=== PATIENT | female | born 1945 | race Caucasian/White ===

== ENCOUNTER 2017-04-13 13:43 | Inpatient (IN) | payer BC ==
--- NOTE | ~2017-04-13 | DS ---
Discharge Summary [id number] [place]. [address] NAME: MARIELA MERA : 45 STATUS : DIS IN PAT#: [id number] AGE: 71 ADM/REG DATE : 04/13/17 MR#: [id number] REPORT SERV DATE: 04/25/17 DICTATED BY: BORIS MICHAELS DATE: 04/25/17 REPORT STATUS : Draft TRANSCRIBED BY: MODL DATE: 04/25/17 ADMISSION DATE: 04/13/2017 DISCHARGE DATE: 04/25/2017 Please refer also to history of present illness dictated by Dr. Ad Lawson on 04/13/2017 and refer to interim discharge summary dictated by Dr. Kinney on 04/18/2017 when the patient was discharged to ICU to the regular floor. DIAGNOSES ON ADMISSION: 1. Hypercapnic hypoxic respiratory failure requiring BiPAP. 2. Decreased mental status and decreased level of consciousness most likely secondary to hypercapnia. 3. Severe chronic obstructive pulmonary disease. 4. Bipolar disease. 5. Gastroesophageal reflux disease. 6. Hypertension. 7. Mild dementia. DIAGNOSES ON DISCHARGE: 1. Hypercapnic hypoxic respiratory failure, resolved, currently on baseline home oxygen. Chronic respiratory failure with baseline oxygen requirement of 2 L by nasal cannula. 2. Normal mental status. No evidence of any abnormal mental status. Normal mentation. 3. Severe chronic obstructive pulmonary disease at the baseline. Stable. No evidence of any wheezing, doing well. 4. Hypertension, controlled. 5. History of bipolar disorder, currently completely controlled. No evidence of any abnormality. 6. Mild dementia with good reasoning. 7. Chronic depression, seen by Dr. Moore, psychiatrist. 8. Hallucinations, resolved after patient's home medications adjusted. 9. Obstructive sleep apnea, needs to continue to use her CPAP at night. 10.Left knee wound, resolved in the healing stage. Currently, no evidence of active infection. 11.Polypharmacy, on multiple sedative medications, which will increase the risk of fall. 12.History of previous two falls. 13.Polypharmacy, reduce sedative medications. CONSULTANTS ON THE CASE: Psychiatrist, Dr. Harley Moore. HISTORY OF PRESENT ILLNESS: Briefly, this is a very pleasant, 71-year-old female, who was admitted initially by Critical Care physician, Dr. Ad Lawson, for unresponsiveness and decreased level of consciousness as well as with acute hypercapnic hypoxic respiratory failure and was placed on BiPAP. For the details, see history of present illness dictated by Dr. Lawson on 04/13/2017. HOSPITAL COURSE: Briefly, the patient was staying in the ICU until 04/21/2017, when I saw Discharge Summary [address] [place]. [address] NAME: MARIELA MERA : 45 STATUS : DIS IN PAT#: [id number] AGE: 71 ADM/REG DATE : 04/13/17 MR#: [id number] REPORT SERV DATE: 04/25/17 DICTATED BY: BORIS MICHAELS DATE: 04/25/17 REPORT STATUS : Draft TRANSCRIBED BY: JAY DATE: 04/25/17 the patient first time. Please also refer to interim discharge summary dictated by Dr. Kinney on 04/18/2017. When I saw the patient on 04/21/2017, she was doing well. She had mild wheezing. She was continuing her COPD regimen and her wheezing resolved next day as well as she had a wound on the left knee, which was also in the healing stage. There was no active infection. Her white count improved. She was afebrile. She completed her antibiotics while inpatient and needed to continue only wound care and the wound was very small and the skin was already healed around. She also had hyponatremia, which I think it is related to her multiple medications and polypharmacy. It has resolved, and her sodium improved to 132. She did not have any confusion and she had mild hallucination on the first day when she was on the floor. Dr. Moore, psychiatrist, was consulted in regards of this hallucinations. He evaluated the patient and he found that the patient has extensive polypharmacy. He recommended to decrease her Effexor to 150 mg daily. He recommended to decrease the Seroquel to 50 mg daily. Also, he recommended to decrease Klonopin to 0.5 mg at bedtime only. In the same time, he recommended to discontinue trazodone and also to discontinue Flomax since the patient did not have any urinary retention and Flomax is usually prescribed in men patients. In the same time, Dr. Moore questions if the patient really has bipolar disorder. He thinks that she has depression, which is chronic and controlled currently. Regarding the patient's dementia, Dr. Moore also stated that and if the patient has dementia, it is mild dementia and she is able to do reasoning and he recommended to stop Exelon patch and to see how the patient is doing. Here, we saw the patient for last four days and she was doing well. She was ambulating without assistance and she met her goals at physical therapy, so she is not qualified for [facility] and she can go home as well as because of this polypharmacy and multiple sedative medications, the patient is at risk for acute respiratory failure, because elevated dosages of Klonopin with combination of Seroquel, trazodone, and Klonopin can cause over-sedation, so it was recommended to decrease her sedative medications, and Exelon patch also was held and the patient did not have any hallucinations and her mood was very controlled. Dr. Moore also stated that the patient more have depressive disorder than bipolar, although there is a possibility of bipolar disorder as well, but it is currently controlled, and the Seroquel will take care of that. Also wound care was continued. Her hypertension was controlled. She has tremor, which is most likely benign essential tremor. The patient was recommended to go home, and I told the patient that she cannot stay at home by herself, so she needs to go and stay with her niece because she needs constant help for seven days a week, 24 hour today. As well as, we will arrange physical therapy to help patients with medications to help the patient with physical therapy and wound care. The patient was argumentative with her education consultant, but I emphasized to the patient that she needs to stay with her education consultant to help her. Also, we recommend the patient to use her CPAP at home and recommend to follow up with nurse practitioner of Niya Rocha for further management and re-adjusting her medications as well as her neurologist, but the patient has very mild dementia and she has a good reasoning and she understands things, although she has some memory problems. I discussed this also with the caregiver. The patient was very stable on discharge. Discharge Summary [address] [place]. [address] NAME: MARIELA MERA : 45 STATUS : DIS IN PAT#: [id number] AGE: 71 ADM/REG DATE : 04/13/17 MR#: [id number] REPORT SERV DATE: 04/25/17 DICTATED BY: BORIS MICHAELS DATE: 04/25/17 REPORT STATUS : Draft TRANSCRIBED BY: JAY DATE: 04/25/17 DISCHARGE MEDICATIONS SUMMARY: Lipitor 10 mg daily; Norvasc 5 mg daily, new prescription given; Colace 100 mg p.o. b.i.d.; lisinopril 20 mg daily; potassium chloride 10 mEq daily; Seroquel dose was decreased to 50 mg at bedtime; Spiriva one capsule by inhalation q.24 hours; Effexor dose was decreased by Dr. Moore to 150 mg a day; trazodone was discontinued; clonazepam instead of 0.5 twice a day was decreased to 0.5 at bedtime; clonidine transdermal patch to be continued at 0.3 mg every seven days; albuterol nebulized inhaled twice daily; Exelon patch was discontinued; and Flomax as well was discontinued since it can cause orthostatic hypotension and dizziness as well as Klonopin and Seroquel dosages were decreased by Dr. Moore because of the same reason decreased respiratory drive and risk of respiratory failure and hypoxemia and hypercarbia. This was all explained to the patient and to her caregiver. I spent 45 minutes on discharge. I want to mention that the patient was observed here in the regular floor for the last four days, and her wound mood was very controlled and memory was also stable. She has very mild dementia and she was doing well. DICTATED BY: Juana Hernandez/JAY Boris Michaels M.D. / [id number] CC: Juana Hernandez M.D.
--- NOTE | ~2017-04-13 | IDS ---
Interim Discharge Summary [facility] [address] [place]. [address] NAME: MARIELA MERA : 45 STATUS : ADM IN PAT#: [id number] AGE: 71 ADM/REG DATE : 04/13/17 MR#: [id number] REPORT SERV DATE: 04/18/17 DICTATED BY: TAYO KINNEY DATE: 04/18/17 REPORT STATUS : Draft TRANSCRIBED BY: MODL DATE: 04/18/17 ADMISSION DATE: 04/13/2017 DISCHARGE DATE: ADMISSION DIAGNOSES: 1. Hypercapnic-hypoxic respiratory failure requiring BiPAP. 2. Decreased mental status, more than likely secondary to hypercapnia. 3. Severe chronic obstructive pulmonary disease. 4. Bipolar disease. 5. Gastroesophageal reflux disease. 6. Hypertension. 7. Dementia. HOSPITAL COURSE: The patient was brought in by EMS after she was found unresponsive by her . The patient was given Narcan with minimal improvement, taken to the emergency room, was found to be hypercapnic with a pCO2 of 96. The patient was placed on BiPAP and transferred to the MICU for further care. She was treated with bronchodilator protocol, steroids and has improved. Chest x-ray did not show any obvious infiltrates. The patient was started on broad-spectrum antibiotic therapy with Zosyn and vancomycin. There was no obvious source of infection. However, she was reported to have a lower extremity cellulitis, which has improved. Zosyn was changed to Levaquin, and vancomycin was continued. Of note, the patient had an elevated procalcitonin on admission, which was 1.09 and decreased to 1.03 on 04/14, no repeat has been done since. I have ordered a procalcitonin for the morning of 04/19. If this continues to decrease and has come down to less than 0.05, I would go ahead and discontinue the antibiotics. Another consideration is that if the cellulitis continues to need treatment that the patient can be started on Ancef with discontinuation of the Zosyn and the Levaquin. The patient is on chronic O2 therapy at home at [address] Lynn as an outpatient and should see him after she is discharged. For treatment of her depression and dementia, her Exelon, Desyrel, Effexor, Klonopin have been continued. She was noted to be somewhat mildly hyponatremic this morning with a sodium of 127. It was noted that she is on hydrochlorothiazide and this has been discontinued. I will follow her sodium to see if it improves after the discontinuation of the hydrochlorothiazide. She has been on subcu heparin prophylaxis for DVT prophylaxis and on Pepcid for GI prophylaxis. She is stable for discharge to the floor, Hospitalist Service will continue to follow her on the floor, and the Hospitalist Intake Service will be notified. /JAY Tayo Kinney M.D. / [id number] Interim Discharge Summary [address] [address] NAME: MARIELA MERA : 45 STATUS : ADM IN [facility]#: [id number] AGE: 71 ADM/REG DATE : 04/13/17 MR#: [id number] REPORT SERV DATE: 04/18/17 DICTATED BY: TAYO KINNEY DATE: 04/18/17 REPORT STATUS : Draft TRANSCRIBED BY: JAY DATE: 04/18/17 CC: MD Niya Reis M.D.
--- NOTE | ~2017-04-13 | CN ---
Consultation Report [facility] [address] [place]. [address] NAME: MARIELA MERA : 45 STATUS : ADM IN PAT#: [id number] AGE: 71 ADM/REG DATE : 04/13/17 MR#: [id number] REPORT SERV DATE: 04/22/17 DICTATED BY: HARLEY LAZAR DATE: 04/22/17 REPORT STATUS : Draft TRANSCRIBED BY: MODL DATE: 04/22/17 PSYCHIATRIC CONSULTATION DATE OF CONSULTATION: 04/22/2017 I reviewed this patient's current and old medical records. I discussed the patient's status with Dr. Alcazar. HISTORY OF PRESENT ILLNESS: The patient was found unresponsive at home. She was admitted with evidence of hypercapnic respiratory failure. I was consulted to address her bipolar status. PAST PSYCHIATRIC HISTORY: She had two previous admissions to [facility] this year with episodes of respiratory failure and exacerbations of COPD. Her home medication list included Klonopin 0.5 mg b.i.d., Seroquel 25 mg a.m. and 100 mg at bedtime, Exelon patch 9.5 mg daily, trazodone 50 mg at bedtime, Effexor XR 150 mg q.a.m. and 75 mg at bedtime. She reports that she has suffered from chronic depression since her teens or perhaps even earlier. Before, she was age 20, she spent two years at [facility] where she was given courses of ECTs. She has never suffered from any manic or hypomanic symptoms. SOCIAL HISTORY: Her of 30 years suddenly about seven years ago. A few years ago, she went to live with a niece. She feels her niece is supportive, but is overly protective, and she tends to request a lot of medication for the patient. MENTAL STATUS: She was very pleasant and cooperative in attitude. She spoke freely and fluently. She reported that she has had periods of amnesia over the years, but she has not experienced any new problem with her memory. Her mood was somewhat dysphoric. Her affect was appropriate. Her thinking was logical. She had no delusions. She had no hallucinations. She was oriented to time, place, and person. DIAGNOSIS: Major depressive disorder, chronic. RECOMMENDATIONS: She was mainly concerned about her recent falls and her recurring respiratory failures. She was concerned about polypharmacy and she asked if we could address this. I discussed her medications with Dr. Alcazar and decided to make the following changes. 1. Discontinue trazodone. 2. Discontinue Exelon patch. 3. Discontinue Flomax. 4. Reduce Effexor XR to 150 mg daily. 5. Reduce Klonopin to 0.5 mg at bedtime only. I will see her for a followup visit on Tuesday04/25/2017 if she is still in the hospital. Consultation Report [id number] [facility] [place]. [address] NAME: MARIELA MERA : 45 STATUS : ADM IN PAT#: [id number] AGE: 71 ADM/REG DATE : 04/13/17 MR#: [id number] REPORT SERV DATE: 04/22/17 DICTATED BY: HARLEY LAZAR DATE: 04/22/17 REPORT STATUS : Draft TRANSCRIBED BY: JAY DATE: 04/22/17 KENIA/JAY Harley Lazar M.D. / [id number] CC: Juana Hernandez M.D.
--- NOTE | ~2017-04-13 | HP ---
History And Physical [address] [place]. [address] NAME: MARIELA MERA : 45 STATUS : ADM IN [facility]#: [id number] AGE: 71 ADM/REG DATE : 04/13/17 MR#: [id number] REPORT SERV DATE: 04/14/17 DICTATED BY: AD BURROUGHS DATE: 04/13/17 REPORT STATUS : Draft TRANSCRIBED BY: MODL DATE: 04/13/17 DATE OF ADMISSION: 04/13/2017 TIME: 2041 hours. Seen in MICU bed 5. HISTORY OF PRESENT ILLNESS: The patient is a 71-year-old, COPD patient, who apparently was found unresponsive at home, given Narcan and woke up slightly, taken by EMS to the emergency room where she was found to be hypercapnic and placed on BiPAP. Now in the Medical ICU, the patient is on BiPAP. She is awake and responsive. She has a lot of muscular twitches at this time. Her vital signs are currently stable. Family found her unresponsive at home and they called the EMS. PAST MEDICAL HISTORY: Significant for hypertension, dementia, COPD, chronic hypoxic respiratory failure, O2 dependent, history of bipolar disease, GERD. She is status post left breast lumpectomy, back surgery, tonsillectomy, hemorrhoidectomy. ALLERGIES: SHE IS ALLERGIC TO AMITRIPTYLINE, MORPHINE, AND ASPIRIN. HOME MEDICATIONS: Quite extensive, include: Albuterol nebulizer solution, Lipitor 10 mg at bedtime, Klonopin 0.5 mg p.o. twice a day, Catapres transdermal patch 0.3 mg per 24 hours one patch every seven days, lisinopril 20 mg p.o. daily, KCl 10 mEq p.o. daily, Seroquel 100 mg p.o. at bedtime and Seroquel 25 mg p.o. daily, Exelon 9.5 mg patch daily, Flomax 0.4 mg capsule daily, Spiriva HandiHaler 1 cap inhalation daily, Desyrel 50 mg p.o. daily, Effexor XR 150 mg p.o. daily, Effexor XR 75 mg p.o. at bedtime. REVIEW OF SYSTEMS: A 10-point review is done except for mentioned above, all other systems are negative. PHYSICAL EXAMINATION: VITAL SIGNS: Blood pressure of 127/83, temperature 100.6, pulse 94, sat 99%. GENERAL: Patient has multiple ecchymoses over the upper extremities and lower extremities. HEENT: Head is normocephalic. Sclerae and conjunctivae are clear. NECK: Supple. Good upstroke. CHEST: Decreased breath sounds. Occasional wheezing. No rhonchi. CARDIAC: S1 and S2. No murmurs or gallops. ABDOMEN: Soft, nontender. No masses or organomegaly. EXTREMITIES: No clubbing or edema or cyanosis. NEUROLOGIC: Has evidence for tremors and some . Cranial nerves appear to be intact. The patient is responsive. LABORATORY DATA: Show sodium 138, potassium 5.0, chloride 101, CO2 of 32, BUN 20, creatinine 1.27, glucose 120, calcium 8.5, magnesium 2.1. Troponin 0.6. Acetaminophen 2.0, salicylate 1.7, alcohol less than 10. Lactate 2.2. Initial blood gas: PH 7.24, pCO2 of 84, PO2 of 270 on BiPAP 18/8. BNP 289. Chest x-ray is clear. CBC shows an H and H of 11.0 and 36.7, History And Physical [address] [address] NAME: MARIELA MERA : 45 STATUS : ADM IN [facility]#: [id number] AGE: 71 ADM/REG DATE : 04/13/17 MR#: [id number] REPORT SERV DATE: 04/14/17 DICTATED BY: AD BURROUGHS DATE: 04/13/17 REPORT STATUS : Draft TRANSCRIBED BY: MOD DATE: 04/13/17 white count 28,300, platelets 365,000, 74 polys, 21 bands, 2 monos. INR 0.9. UA 530 mg protein. Urine drug screen positive for opiates. CT brain, mild atrophy, . Blood gas: PH 7.14. PCO2 of 96, PO2 of 63, on 100%. Repeat blood gas: PH 7.24, pCO2 of 85, PO2 of 96, 50%, 20/18. Pelvic x-ray: No pelvic fractures or dislocations. IMPRESSION: 1. Positive urine screen for opiates. 2. Hypercapnic respiratory failure. 3. Chronic obstructive pulmonary disease. 4. Mild dementia. PLAN: Continue IV Solu-Medrol. Continue BiPAP. Monitor intake and output. Initiate antibiotic therapy. We will get urinary Legionella and urinary streptococcal antigen, blood cultures, and procalcitonin. Chest x-ray shows no infiltrates. RP/MODL Ad Burroughs M.D. / [id number] CC: Shawn Steen MD
[2017-04-13 12:46] LABS: BASOPHILS 0 %; BASOPHILS ABSOLUTE 0.01 10/3/uL (0.0-0.16); EOSINOPHILS 0 %; IMMATURE GRANULOCYTES 0.4 %; LYMPHOCYTES ABSOLUTE 1.12 10/3/uL (0.67-4.30); MEAN CORPUSCULAR HEMOGLOB 28.1 pg (26.0-34.0); MEAN PLATELET VOLUME 9.4 fL (9.2-13.0); MONOCYTES 3.8 %; MONOCYTES ABSOLUTE 1.07 10/3/uL (0.21-1.20); NEUTROPHILS 91.8 %; NEUTROPHILS ABSOLUTE 26.01 10/3/uL (2.02-8.40); RED CELL COUNT 3.92 10/6/uL (4.0-5.6)
[2017-04-13 12:48] LABS: ER CBC TAT 0 Hrs 13 Mins; HEMATOCRIT 36.7 % (36.0-48.0); IMMATURE GRANULOCYTES ABSOLUTE 0.12 10/3/uL (0.0-0.11); MANUAL DIFF NO %; MEAN CORPUSCULAR VOLUME 93.6 fL (80-100); PLATELET COUNT 365 10/3/uL (150-400); WHITE BLOOD CELLS 28.3 10/3/uL (4.5-10.5)
[2017-04-13 13:03] LABS: CALCIUM, SERUM 8.5 MG/DL (8.5-10.4); CO2 (CARBON DIOXIDE) 32 MMOL/L (24-34); CREATININE 1.27 MG/DL (0.55-1.02); GFR AFRICAN AMERICAN 49 ML/MIN (>=60); GFR NON AFRICAN AMERICAN 42 ML/MIN (>=60)
[2017-04-13 13:06] LABS: ACETAMINOPHEN LEVEL (TYLENOL) < 2.0 MCG/ML (10.0-20.0); ALCOHOL < 10 MG/DL (0); BUN (BLOOD UREA NITROGEN) 20 MG/DL (6-23); CHEST PAIN PROFILE TAT 0 Hrs 31 Mins; CHLORIDE, SERUM 101 MMOL/L (96-112); GLUCOSE, SERUM 120 MG/DL (60-99); SALICYLATE < 1.7 MG/DL (-); SODIUM, SERUM 138 MMOL/L (135-148); TROPONIN I 0.06 NG/ML (<0.05)
[2017-04-13 13:10] LABS: LACTATE 2.2 MMOL/L (0.3-2.4)
[2017-04-13 13:20] LABS: BAND NEUTROPHILS 21 %; ER DIFF TAT 0 Hrs 45 Mins; LYMPHOCYTES 3 %; LYMPHOCYTES ABSOLUTE (CALC) 0.85 10/3/uL (0.67-4.30); MONOCYTES 2 %; MONOCYTES ABSOLUTE (CALC) 0.57 10/3/uL (0.21-1.20); NEUTROPHILS ABSOLUTE (CALC) 26.89 10/3/uL (2.02-8.40); PLATELET ESTIMATE ADQ (ADEQUATE); RBC MORPHOLOGY NORM (NORMAL); SEGMENTED NEUTROPHIL (0) 74 %; TOTAL NUCLEATED CELLS 100
[2017-04-13 13:22] LABS: BE (BASE EXCESS) 5.3 MEQ/L (0 +/- 2.5); BIPAP 18/8 cm.H2O; HCO3 (ACTUAL BICARBONATE) 34.9 MEQ/L (23-27); HEMOBLOGIN CONTENT 10.9 G/DL (12-16); INSTRUMENT SERIAL # 8087; METHEMOGLOBIN 0.3 % (0-3); O2 CONTENT 15.6 VOL% (18-24); PCO2 (CO2 TENSION) 84 MMHG (35-45); PO2 (O2 TENSION) 270 MMHG (79-93); SAMPLE Arterial; pH 7.24 (7.37-7.43)
[~2017-04-13 13:43] MED LIST: ADVAIR250 INH; ALBUTEROL5 INH; ATEN25 PO; BACTRIM DS1 TAB; BEN25 PO; CALTRA600D PO; CARDU4 PO; CARDURA XL4 MG PO; CATAPRES3 TOP; CELEBREX2 PO; CELEXA40 MG PO; COMBIVENT RESPIM4 GM INH; DSS PO; DYAZIDE PO; EFFEXOR XR150 MG PO; EFFEXXR75 PO; EXELON9.5T TOP; FIORICET/COD OR; FISH-EPA1000 MG PO; FLOMAX4 PO; FLONASE NAS; FLORASTOR250 MG PO; KDUR10 PO; KLONO5 PO; KLOR-CON M1010 MEQ PO; KLOR-CON M2020 MEQ PO; L40 PO; LIPITOR10 PO; MAX25 PO; MIRALAX POWDER1 PKT PO; MIRALAXPKT PO; NEXIUM40 PO; NORCO1 TA1 PO; NORV5 PO; P10 PO; P20; PRIN20 PO; PROVENTSOL INH; PROVHFA INH; REMERON45 MG PO; SEROQUEL1C PO; SEROQUEL25 PO; SEROQUEL50 MG PO; SPIRIVA INH; STERAPRED DS10 MG; TYLENOL COLD/FLU PO; VERAMYST27.5 MCG NAS; VESICARE5 PO; VITAMIN D1000 UNI1 PO; XOPENEX0.63 MG INH; ZANTAC 150 PO; ZESTRIL20 MG PO; ZYPREXA10 MG PO
[2017-04-13 13:44] LABS: INTERNATIONAL NORMAL RATI 0.9 UNITS (-); PROTIME (NOT ORD) 12.3 SEC (12.0-14.5)
[2017-04-13 13:50] LABS: PARTIAL THROMBO TIME 24.3 SEC (22.5-37.2)
[2017-04-13 13:56] LABS: ASCORBIC ACID (UR NOT ORDER) NEG (NEG); BILIRUBIN, URINE NEGATIVE (NEG); ER URINALYSIS TAT 0 Hrs 25 Mins; KETONE, URINE NEGATIVE (NEG); LEUKOCYTE ESTERASE(NOT OR NEG (NEG); NITRITE (URINE) NEG (NEG); WBC (NOT ORDERED) (RFLEX) < 1 (0-5)
[2017-04-13 14:16] LABS: AMPHETAMINES (NOT ORD) NEG (NEG); BARBITURATES (NOT ORDERED NEG (NEG); BENZODIAZEPINES (NOT ORD) NEG (NEG); CANNABINOIDS (THC) NEG (NEG); COCAINE (NOT ORDERED) NEG (NEG); OPIATES POS (NEG); PHENCYCLIDINE(PCP) NEG (NEG); TRICYCLICS NEG (NEG)
[2017-04-13] MEDS ORDERED: TRAZ50 PO (16:18)
[2017-04-13] MEDS ORDERED: FLOMAX4 PO (16:19)
[2017-04-13 16:52] LABS: ALLENS TEST Pos; CARBOXYHEMOGLOBIN 1.4 % (0-3); HCO3 (ACTUAL BICARBONATE) 32.1 MEQ/L (23-27); HEMOBLOGIN CONTENT 11.4 G/DL (12-16); INSTRUMENT SERIAL # 8087; METHEMOGLOBIN 0.2 % (0-3); O2 CONTENT 14.5 VOL% (18-24); PCO2 (CO2 TENSION) 96 MMHG (35-45); PEEP/CPAP 7.5 cm.H2O; PO2 (O2 TENSION) 63 MMHG (79-93); SAMPLE Arterial; pH 7.14 (7.37-7.43)
[2017-04-13 17:05] LABS: INSTRUMENT SERIAL # 8087; pH 7.24 (7.37-7.43)
[2017-04-13 17:06] LABS: ALLENS TEST Pos; BE (BASE EXCESS) 6.2 MEQ/L (0 +/- 2.5); BIPAP 20/8 cm.H2O; CARBOXYHEMOGLOBIN 1.1 % (0-3); HCO3 (ACTUAL BICARBONATE) 35.7 MEQ/L (23-27); HEMOBLOGIN CONTENT 10.7 G/DL (12-16); METHEMOGLOBIN 0.2 % (0-3); O2 CONTENT 14.6 VOL% (18-24); PCO2 (CO2 TENSION) 85 MMHG (35-45); PO2 (O2 TENSION) 96 MMHG (79-93); SAMPLE Arterial
[2017-04-13 22:57] LABS: A/G RATIO 0.9 (0.7-1.9); BUN (BLOOD UREA NITROGEN) 22 MG/DL (6-23); CALCIUM, SERUM 8.4 MG/DL (8.5-10.4); CHLORIDE, SERUM 103 MMOL/L (96-112); CO2 (CARBON DIOXIDE) 35 MMOL/L (24-34); CREATININE 1.16 MG/DL (0.55-1.02); FREE T4 1.13 NG/DL (0.76-1.46); GFR AFRICAN AMERICAN 55 ML/MIN (>=60); GFR NON AFRICAN AMERICAN 47 ML/MIN (>=60); GLOBULIN 3.2 G/DL (2.5-4.1); GLUCOSE, SERUM 108 MG/DL (60-99); POTASSIUM, SERUM 5.2 MMOL/L (3.5-5.3); SGOT(AST) 15 U/L (5-40); SGPT(ALT) 16 U/L (5-65); SODIUM, SERUM 141 MMOL/L (135-148); TOTAL BILIRUBIN 0.3 MG/DL (0-1.2); TOTAL PROTEIN 6.2 G/DL (6.0-8.5)
[2017-04-13 22:59] LABS: ALKALINE PHOSPHATASE 109 U/L (45-117); ULTRASENSITIVE TSH 0.297 MCIU/ML (0.358-3.740)
[2017-04-14 00:08] LABS: PROCALCITONIN 1.09 ng/mL (<0.5)
[2017-04-14 04:04] LABS: BE (BASE EXCESS) 2.6 MEQ/L (0 +/- 2.5); BIPAP 20/8 cm.H2O; CARBOXYHEMOGLOBIN 0.7 % (0-3); HCO3 (ACTUAL BICARBONATE) 29.7 MEQ/L (23-27); HEMOBLOGIN CONTENT 9.4 G/DL (12-16); INSTRUMENT SERIAL # 8083; METHEMOGLOBIN 0.2 % (0-3); O2 CONTENT 13.1 VOL% (18-24); PCO2 (CO2 TENSION) 60 MMHG (35-45); PO2 (O2 TENSION) 111 MMHG (79-93); SAMPLE Arterial; pH 7.31 (7.37-7.43)
[2017-04-14 05:01] LABS: BASOPHILS 0 %; EOSINOPHILS 0 %; HEMOGLOBIN 9.2 g/dL (12.0-16.0); IMMATURE GRANULOCYTES 0.4 %; IMMATURE GRANULOCYTES ABSOLUTE 0.06 10/3/uL (0.0-0.11); LYMPHOCYTES 5.1 %; LYMPHOCYTES ABSOLUTE 0.75 10/3/uL (0.67-4.30); MEAN CORPUS HGB CONC 30.6 g/dL (32.0-36.0); MEAN CORPUSCULAR HEMOGLOB 27.7 pg (26.0-34.0); MEAN PLATELET VOLUME 9.8 fL (9.2-13.0); MONOCYTES 6.5 %; MONOCYTES ABSOLUTE 0.95 10/3/uL (0.21-1.20); NEUTROPHILS ABSOLUTE 12.88 10/3/uL (2.02-8.40); RED CELL COUNT 3.32 10/6/uL (4.0-5.6)
[2017-04-14 05:02] LABS: HEMATOCRIT 30.1 % (36.0-48.0); MANUAL DIFF NO %; MEAN CORPUSCULAR VOLUME 90.7 fL (80-100); PLATELET COUNT 236 10/3/uL (150-400); WHITE BLOOD CELLS 14.6 10/3/uL (4.5-10.5)
[2017-04-14 05:28] LABS: ALBUMIN 2.9 G/DL (3.5-5.0); BUN (BLOOD UREA NITROGEN) 23 MG/DL (6-23); CALCIUM, SERUM 8.5 MG/DL (8.5-10.4); CHLORIDE, SERUM 104 MMOL/L (96-112); CREATININE 1.09 MG/DL (0.55-1.02); GFR AFRICAN AMERICAN 59 ML/MIN (>=60); GFR NON AFRICAN AMERICAN 51 ML/MIN (>=60); GLUCOSE, SERUM 97 MG/DL (60-99); SGPT(ALT) 14 U/L (5-65); SODIUM, SERUM 138 MMOL/L (135-148); TOTAL BILIRUBIN 0.2 MG/DL (0-1.2); TOTAL PROTEIN 5.9 G/DL (6.0-8.5)
[2017-04-14 05:30] LABS: ALKALINE PHOSPHATASE 96 U/L (45-117); CK-MB 1.8 NG/ML; CO2 (CARBON DIOXIDE) 28 MMOL/L (24-34); CPK 212 U/L (0-200); SGOT(AST) 20 U/L (5-40); TROPONIN I 0.05 NG/ML (<0.05)
[2017-04-14 05:35] LABS: BURR CELLS 1+ (3-10/OIF) (0-2/OIF); PLATELET ESTIMATE ADQ (ADEQUATE)
[2017-04-14 13:11] LABS: BE (BASE EXCESS) 0.7 MEQ/L (0 +/- 2.5); CARBOXYHEMOGLOBIN 0.8 % (0-3); HCO3 (ACTUAL BICARBONATE) 27.2 MEQ/L (23-27); HEMOBLOGIN CONTENT 9.5 G/DL (12-16); INSTRUMENT SERIAL # 8083; METHEMOGLOBIN 0.2 % (0-3); O2 CONTENT 13.2 VOL% (18-24); OPERATOR ID 35784; PCO2 (CO2 TENSION) 53 MMHG (35-45); PO2 (O2 TENSION) 109 MMHG (79-93); SAMPLE Arterial; pH 7.33 (7.37-7.43)
[2017-04-15 04:08] LABS: BASOPHILS 0 %; EOSINOPHILS 0 %; HEMATOCRIT 29.8 % (36.0-48.0); HEMOGLOBIN 9.2 g/dL (12.0-16.0); IMMATURE GRANULOCYTES 0.3 %; IMMATURE GRANULOCYTES ABSOLUTE 0.04 10/3/uL (0.0-0.11); LYMPHOCYTES 7.4 %; MEAN CORPUS HGB CONC 30.9 g/dL (32.0-36.0); MEAN CORPUSCULAR HEMOGLOB 27.4 pg (26.0-34.0); MEAN CORPUSCULAR VOLUME 88.7 fL (80-100); MEAN PLATELET VOLUME 9.8 fL (9.2-13.0); MONOCYTES 8.2 %; NEUTROPHILS 84.1 %; NEUTROPHILS ABSOLUTE 10.27 10/3/uL (2.02-8.40); PLATELET COUNT 285 10/3/uL (150-400); RBC DISTRIBUTION WIDTH 13.9 % (12.0-16.0); RED CELL COUNT 3.36 10/6/uL (4.0-5.6); WHITE BLOOD CELLS 12.2 10/3/uL (4.5-10.5)
[2017-04-15 04:15] LABS: MANUAL DIFF NO %
[2017-04-15 04:26] LABS: BUN (BLOOD UREA NITROGEN) 20 MG/DL (6-23); CALCIUM, SERUM 8.9 MG/DL (8.5-10.4); CHLORIDE, SERUM 98 MMOL/L (96-112); GFR AFRICAN AMERICAN 58 ML/MIN (>=60); GFR NON AFRICAN AMERICAN 50 ML/MIN (>=60); PHOSPHORUS, SERUM 2.4 MG/DL (2.5-4.5); POTASSIUM, SERUM 4.5 MMOL/L (3.5-5.3); SODIUM, SERUM 137 MMOL/L (135-148)
[2017-04-15 04:27] LABS: CO2 (CARBON DIOXIDE) 34 MMOL/L (24-34); GLUCOSE, SERUM 121 MG/DL (60-99)
[2017-04-15 17:03] LABS: TROPONIN I 0.05 NG/ML (<0.05)
[2017-04-16 04:34] LABS: BASOPHILS 0.1 %; BASOPHILS ABSOLUTE 0.01 10/3/uL (0.0-0.16); EOSINOPHILS 0.1 %; EOSINOPHILS ABSOLUTE 0.01 10/3/uL (0.0-0.53); HEMATOCRIT 28.3 % (36.0-48.0); HEMOGLOBIN 9.2 g/dL (12.0-16.0); IMMATURE GRANULOCYTES 0.3 %; IMMATURE GRANULOCYTES ABSOLUTE 0.03 10/3/uL (0.0-0.11); LYMPHOCYTES 13.6 %; LYMPHOCYTES ABSOLUTE 1.52 10/3/uL (0.67-4.30); MEAN CORPUSCULAR HEMOGLOB 27.8 pg (26.0-34.0); MEAN PLATELET VOLUME 9.5 fL (9.2-13.0); MONOCYTES 10.6 %; MONOCYTES ABSOLUTE 1.18 10/3/uL (0.21-1.20); NEUTROPHILS 75.3 %; NEUTROPHILS ABSOLUTE 8.39 10/3/uL (2.02-8.40); PLATELET COUNT 255 10/3/uL (150-400); RED CELL COUNT 3.31 10/6/uL (4.0-5.6); WHITE BLOOD CELLS 11.1 10/3/uL (4.5-10.5)
[2017-04-16 04:43] LABS: MANUAL DIFF NO %; MEAN CORPUS HGB CONC 32.5 g/dL (32.0-36.0); MEAN CORPUSCULAR VOLUME 85.5 fL (80-100)
[2017-04-16 04:45] LABS: BUN (BLOOD UREA NITROGEN) 17 MG/DL (6-23); CALCIUM, SERUM 8.5 MG/DL (8.5-10.4); CHLORIDE, SERUM 94 MMOL/L (96-112); CO2 (CARBON DIOXIDE) 36 MMOL/L (24-34); CREATININE 0.94 MG/DL (0.55-1.02); GFR AFRICAN AMERICAN 71 ML/MIN (>=60); GFR NON AFRICAN AMERICAN 61 ML/MIN (>=60); GLUCOSE, SERUM 106 MG/DL (60-99); PHOSPHORUS, SERUM 2.8 MG/DL (2.5-4.5); POTASSIUM, SERUM 4.2 MMOL/L (3.5-5.3); SODIUM, SERUM 133 MMOL/L (135-148)
[2017-04-17 05:05] LABS: BASOPHILS 0.1 %; BASOPHILS ABSOLUTE 0.01 10/3/uL (0.0-0.16); EOSINOPHILS 0.4 %; EOSINOPHILS ABSOLUTE 0.04 10/3/uL (0.0-0.53); HEMOGLOBIN 9.3 g/dL (12.0-16.0); IMMATURE GRANULOCYTES 0.4 %; IMMATURE GRANULOCYTES ABSOLUTE 0.04 10/3/uL (0.0-0.11); LYMPHOCYTES ABSOLUTE 1.62 10/3/uL (0.67-4.30); MEAN CORPUS HGB CONC 32.1 g/dL (32.0-36.0); MEAN CORPUSCULAR VOLUME 84.1 fL (80-100); MEAN PLATELET VOLUME 9.4 fL (9.2-13.0); MONOCYTES 10.6 %; MONOCYTES ABSOLUTE 1.01 10/3/uL (0.21-1.20); NEUTROPHILS 71.5 %; NEUTROPHILS ABSOLUTE 6.81 10/3/uL (2.02-8.40); PLATELET COUNT 274 10/3/uL (150-400); RBC DISTRIBUTION WIDTH 14.1 % (12.0-16.0); RED CELL COUNT 3.45 10/6/uL (4.0-5.6); WHITE BLOOD CELLS 9.5 10/3/uL (4.5-10.5)
[2017-04-17 05:06] LABS: MANUAL DIFF NO %
[2017-04-17 05:18] LABS: BUN (BLOOD UREA NITROGEN) 15 MG/DL (6-23); CALCIUM, SERUM 8.5 MG/DL (8.5-10.4); CHLORIDE, SERUM 91 MMOL/L (96-112); CO2 (CARBON DIOXIDE) 36 MMOL/L (24-34); CREATININE 0.93 MG/DL (0.55-1.02); GFR AFRICAN AMERICAN 72 ML/MIN (>=60); GFR NON AFRICAN AMERICAN 62 ML/MIN (>=60); GLUCOSE, SERUM 86 MG/DL (60-99); POTASSIUM, SERUM 3.9 MMOL/L (3.5-5.3); SODIUM, SERUM 132 MMOL/L (135-148)
[2017-04-18 04:41] LABS: BASOPHILS 0 %; EOSINOPHILS 0.7 %; EOSINOPHILS ABSOLUTE 0.06 10/3/uL (0.0-0.53); HEMATOCRIT 27.7 % (36.0-48.0); HEMOGLOBIN 9.1 g/dL (12.0-16.0); IMMATURE GRANULOCYTES 0.3 %; IMMATURE GRANULOCYTES ABSOLUTE 0.03 10/3/uL (0.0-0.11); LYMPHOCYTES 20.7 %; LYMPHOCYTES ABSOLUTE 1.84 10/3/uL (0.67-4.30); MEAN CORPUS HGB CONC 32.9 g/dL (32.0-36.0); MEAN CORPUSCULAR HEMOGLOB 27.2 pg (26.0-34.0); MEAN CORPUSCULAR VOLUME 82.9 fL (80-100); MEAN PLATELET VOLUME 9.5 fL (9.2-13.0); MONOCYTES 11.5 %; MONOCYTES ABSOLUTE 1.02 10/3/uL (0.21-1.20); NEUTROPHILS 66.8 %; NEUTROPHILS ABSOLUTE 5.94 10/3/uL (2.02-8.40); PLATELET COUNT 264 10/3/uL (150-400); RBC DISTRIBUTION WIDTH 13.9 % (12.0-16.0); RED CELL COUNT 3.34 10/6/uL (4.0-5.6); WHITE BLOOD CELLS 8.9 10/3/uL (4.5-10.5)
[2017-04-18 04:57] LABS: MANUAL DIFF NO %
[2017-04-18 05:00] LABS: CALCIUM, SERUM 8.4 MG/DL (8.5-10.4); CHLORIDE, SERUM 86 MMOL/L (96-112); CO2 (CARBON DIOXIDE) 36 MMOL/L (24-34); CREATININE 0.97 MG/DL (0.55-1.02); GFR AFRICAN AMERICAN 68 ML/MIN (>=60); GFR NON AFRICAN AMERICAN 59 ML/MIN (>=60); GLUCOSE, SERUM 95 MG/DL (60-99); POTASSIUM, SERUM 3.9 MMOL/L (3.5-5.3); SODIUM, SERUM 127 MMOL/L (135-148)
[2017-04-18 05:01] LABS: BUN (BLOOD UREA NITROGEN) 11 MG/DL (6-23)
[2017-04-19 04:32] LABS: BUN (BLOOD UREA NITROGEN) 12 MG/DL (6-23); CALCIUM, SERUM 8.4 MG/DL (8.5-10.4); CHLORIDE, SERUM 86 MMOL/L (96-112); CO2 (CARBON DIOXIDE) 35 MMOL/L (24-34); GFR AFRICAN AMERICAN 75 ML/MIN (>=60); GFR NON AFRICAN AMERICAN 64 ML/MIN (>=60); GLUCOSE, SERUM 100 MG/DL (60-99); PHOSPHORUS, SERUM 3.6 MG/DL (2.5-4.5); POTASSIUM, SERUM 3.8 MMOL/L (3.5-5.3); SODIUM, SERUM 128 MMOL/L (135-148)
[2017-04-19 05:46] LABS: PROCALCITONIN <0.05 ng/mL (<0.5)
[2017-04-20 04:25] LABS: BASOPHILS 0.2 %; BASOPHILS ABSOLUTE 0.02 10/3/uL (0.0-0.16); EOSINOPHILS 2.5 %; EOSINOPHILS ABSOLUTE 0.29 10/3/uL (0.0-0.53); HEMOGLOBIN 10.4 g/dL (12.0-16.0); IMMATURE GRANULOCYTES 1.5 %; IMMATURE GRANULOCYTES ABSOLUTE 0.17 10/3/uL (0.0-0.11); LYMPHOCYTES 20.7 %; LYMPHOCYTES ABSOLUTE 2.39 10/3/uL (0.67-4.30); MEAN CORPUS HGB CONC 33.5 g/dL (32.0-36.0); MEAN CORPUSCULAR HEMOGLOB 27.4 pg (26.0-34.0); MEAN CORPUSCULAR VOLUME 81.8 fL (80-100); MEAN PLATELET VOLUME 9.6 fL (9.2-13.0); MONOCYTES 13.4 %; MONOCYTES ABSOLUTE 1.55 10/3/uL (0.21-1.20); NEUTROPHILS 61.7 %; NEUTROPHILS ABSOLUTE 7.11 10/3/uL (2.02-8.40); PLATELET COUNT 280 10/3/uL (150-400); RBC DISTRIBUTION WIDTH 14.1 % (12.0-16.0); RED CELL COUNT 3.79 10/6/uL (4.0-5.6); WHITE BLOOD CELLS 11.5 10/3/uL (4.5-10.5)
[2017-04-20 04:28] LABS: MANUAL DIFF NO %
[2017-04-20 04:46] LABS: BUN (BLOOD UREA NITROGEN) 9 MG/DL (6-23); CALCIUM, SERUM 8.6 MG/DL (8.5-10.4); CHLORIDE, SERUM 87 MMOL/L (96-112); CO2 (CARBON DIOXIDE) 31 MMOL/L (24-34); CREATININE 0.93 MG/DL (0.55-1.02); GFR AFRICAN AMERICAN 72 ML/MIN (>=60); GFR NON AFRICAN AMERICAN 62 ML/MIN (>=60); GLUCOSE, SERUM 77 MG/DL (60-99); PHOSPHORUS, SERUM 3.9 MG/DL (2.5-4.5); POTASSIUM, SERUM 3.9 MMOL/L (3.5-5.3); SODIUM, SERUM 125 MMOL/L (135-148)
[2017-04-20 10:16] LABS: OSMOLALITY, URINE 147 MOSM/KG (50-1200)
[2017-04-20 10:18] LABS: SODIUM, URINE 34 MEQ/L
[2017-04-21 05:53] LABS: BASOPHILS 0.2 %; BASOPHILS ABSOLUTE 0.03 10/3/uL (0.0-0.16); EOSINOPHILS 3.7 %; EOSINOPHILS ABSOLUTE 0.46 10/3/uL (0.0-0.53); HEMATOCRIT 30.5 % (36.0-48.0); IMMATURE GRANULOCYTES 1.7 %; IMMATURE GRANULOCYTES ABSOLUTE 0.21 10/3/uL (0.0-0.11); LYMPHOCYTES 16.1 %; LYMPHOCYTES ABSOLUTE 2.01 10/3/uL (0.67-4.30); MANUAL DIFF NO %; MEAN CORPUS HGB CONC 32.8 g/dL (32.0-36.0); MEAN CORPUSCULAR HEMOGLOB 27.3 pg (26.0-34.0); MEAN CORPUSCULAR VOLUME 83.3 fL (80-100); MEAN PLATELET VOLUME 9.6 fL (9.2-13.0); MONOCYTES 12.9 %; MONOCYTES ABSOLUTE 1.61 10/3/uL (0.21-1.20); NEUTROPHILS 65.4 %; NEUTROPHILS ABSOLUTE 8.18 10/3/uL (2.02-8.40); PLATELET COUNT 300 10/3/uL (150-400); RBC DISTRIBUTION WIDTH 14.6 % (12.0-16.0); RED CELL COUNT 3.66 10/6/uL (4.0-5.6); WHITE BLOOD CELLS 12.5 10/3/uL (4.5-10.5)
[2017-04-21 06:13] LABS: BUN (BLOOD UREA NITROGEN) 11 MG/DL (6-23); CALCIUM, SERUM 8.4 MG/DL (8.5-10.4); CHLORIDE, SERUM 94 MMOL/L (96-112); CO2 (CARBON DIOXIDE) 32 MMOL/L (24-34); CREATININE 1.04 MG/DL (0.55-1.02); GFR AFRICAN AMERICAN 63 ML/MIN (>=60); GFR NON AFRICAN AMERICAN 54 ML/MIN (>=60); GLUCOSE, SERUM 79 MG/DL (60-99); PHOSPHORUS, SERUM 4.2 MG/DL (2.5-4.5); POTASSIUM, SERUM 4.1 MMOL/L (3.5-5.3); SODIUM, SERUM 132 MMOL/L (135-148)
[2017-04-22 05:10] LABS: BUN (BLOOD UREA NITROGEN) 12 MG/DL (6-23); CALCIUM, SERUM 8.3 MG/DL (8.5-10.4); CHLORIDE, SERUM 94 MMOL/L (96-112); CREATININE 1.14 MG/DL (0.55-1.02); GFR AFRICAN AMERICAN 56 ML/MIN (>=60); GFR NON AFRICAN AMERICAN 48 ML/MIN (>=60); POTASSIUM, SERUM 4.1 MMOL/L (3.5-5.3); SODIUM, SERUM 129 MMOL/L (135-148)
[2017-04-22 05:13] LABS: CO2 (CARBON DIOXIDE) 27 MMOL/L (24-34); GLUCOSE, SERUM 96 MG/DL (60-99)
[2017-04-22 05:37] LABS: BASOPHILS 0.6 %; BASOPHILS ABSOLUTE 0.07 10/3/uL (0.0-0.16); EOSINOPHILS 3.3 %; EOSINOPHILS ABSOLUTE 0.39 10/3/uL (0.0-0.53); HEMOGLOBIN 8.9 g/dL (12.0-16.0); IMMATURE GRANULOCYTES 1.6 %; IMMATURE GRANULOCYTES ABSOLUTE 0.19 10/3/uL (0.0-0.11); LYMPHOCYTES 18.5 %; MEAN CORPUS HGB CONC 33.2 g/dL (32.0-36.0); MEAN CORPUSCULAR HEMOGLOB 28.2 pg (26.0-34.0); MEAN CORPUSCULAR VOLUME 84.8 fL (80-100); MEAN PLATELET VOLUME 9.7 fL (9.2-13.0); MONOCYTES 10.7 %; MONOCYTES ABSOLUTE 1.28 10/3/uL (0.21-1.20); NEUTROPHILS 65.3 %; NEUTROPHILS ABSOLUTE 7.79 10/3/uL (2.02-8.40); NUCLEATED RED BLOOD CELLS 0.2 /100WBC (0-0); PLATELET COUNT 273 10/3/uL (150-400); RBC DISTRIBUTION WIDTH 14.7 % (12.0-16.0); RED CELL COUNT 3.16 10/6/uL (4.0-5.6); WHITE BLOOD CELLS 11.9 10/3/uL (4.5-10.5)
[2017-04-22 05:39] LABS: HEMATOCRIT 26.8 % (36.0-48.0); MANUAL DIFF NO %
[2017-04-23 06:38] LABS: BUN (BLOOD UREA NITROGEN) 12 MG/DL (6-23); CALCIUM, SERUM 8.7 MG/DL (8.5-10.4); CHLORIDE, SERUM 95 MMOL/L (96-112); CO2 (CARBON DIOXIDE) 31 MMOL/L (24-34); GFR AFRICAN AMERICAN 66 ML/MIN (>=60); GFR NON AFRICAN AMERICAN 57 ML/MIN (>=60); GLUCOSE, SERUM 84 MG/DL (60-99); POTASSIUM, SERUM 4.1 MMOL/L (3.5-5.3); SODIUM, SERUM 132 MMOL/L (135-148)
[2017-04-25] MEDS ORDERED: NORV5 PO (09:45)
[2017-04-25] MEDS ORDERED: DSS PO (09:46)
== END 2017-04-25 14:06 | disposition home health service (06) | DRG 189 ==
LOC: ER 13:43 → MIC 17:54 → 2SO 04-20 15:17
PROVIDERS: Emergency Medicine; Hospitalist; Internal Medicine; Internal Medicine Critical Care Medicine; Internal Medicine Pulmonary Disease
PROC: 5A09457 Assistance with Respiratory Ventilation, 24-96 Consecutive Hours, Continuous Positive Airway Pressure (ICD-10-PCS; principal; 2017-04-13)
DX: J96.22 Acute and chronic respiratory failure with hypercapnia (principal); L03.116 Cellulitis of left lower limb; Z99.81 Dependence on supplemental oxygen; F03.90 Unspecified dementia, unspecified severity, without behavioral disturbance, psychotic disturbance, mood disturbance, and anxiety; J44.9 Chronic obstructive pulmonary disease, unspecified; E87.1 Hypo-osmolality and hyponatremia; J96.21 Acute and chronic respiratory failure with hypoxia; I10 Essential (primary) hypertension; F31.9 Bipolar disorder, unspecified; K21.9 Gastro-esophageal reflux disease without esophagitis; E78.5 Hyperlipidemia, unspecified; W06.XXXA Fall from bed, initial encounter; Y93.9 Activity, unspecified; Y92.003 Bedroom of unspecified non-institutional (private) residence as the place of occurrence of the external cause; Z91.81 History of falling; Z98.890 Other specified postprocedural states; Z79.899 Other long term (current) drug therapy; Z88.5 Allergy status to narcotic agent; Z88.6 Allergy status to analgesic agent; Z88.8 Allergy status to other drugs, medicaments and biological substances
CPT/HCPCS: 36569; 36600; 70450; 71010; 72170; 80048; 80053; 80202; 80305; 80307; 81001; 82550; 82553; 82570; 82805; 83036; 83605; 83735; 83880; 83930; 83935; 84100; 84145; 84295; 84300; 84439; 84443; 84484; 85025; 85610; 85730; 87040; 87449; 87641; 89190; 93005; 94640; 94660; 96365; 96375; 97116-GP; 97161-GP; 97166-GO; 99291; A9270-GY; C1751; J0360; J1956; J2405; J2543; J2930; J3370; J3475